=== PATIENT | male | born 1975 | race Hispanic/Latino ===

== ENCOUNTER 2017-06-03 09:06 | Outpatient (CLI) | payer BC | END 2017-06-03 09:07 | disposition home or self-care (01) | LOC: BICMAMMO 09:06 | PROVIDERS: ATTEND Specialist | DX: N63.10 Unspecified lump in the right breast, unspecified quadrant (principal); N64.89 Other specified disorders of breast; Z80.3 Family history of malignant neoplasm of breast | CPT/HCPCS: 77066; G0279 ==

== ENCOUNTER → 2017-06-13 | Day surgery (SDC) | payer BC | LOC: BICULT 14:12 | PROVIDERS: ATTEND Specialist | PROC: 0HBT3ZX Excision of Right Breast, Percutaneous Approach, Diagnostic (ICD-10-PCS; principal; 2017-06-13) | DX: N63.14 Unspecified lump in the right breast, lower inner quadrant (principal) | CPT/HCPCS: 19083; 88305 ==

== ENCOUNTER 2021-10-28 23:17 | Inpatient (IN) | payer BC ==
[2021-10-29 00:12] LABS: Anion Gap 25 mmol/L (10-20); BUN (Urea Nitrogen) 28 mg/dL (8.9-20.6); Calc. Creatinine Clearance 0 mL/min (70-130); Calcium 8.9 mg/dL (7.8-10.44); Carbon Dioxide 11 mmol/L (22-29); Chloride 109 mmol/L (98-107); Glucose 271 mg/dL (70-105); Potassium 4.5 mmol/L (3.5-5.1); Sodium 140 mmol/L (136-145)
[2021-10-29] MEDS ORDERED: Insulin Regular 300 UNITS/3 ML VIAL ONE (00:38)
[2021-10-29] MEDS ORDERED: INSULIN REGULAR IN 0.9 % NACL 100 UNIT/100 ML BAG ONE (00:39)
[2021-10-29] MEDS ORDERED: NS 0.9% w/ 20 MEQ KCL 1,000 ML IV SCH (01:30)
[2021-10-29] MEDS ORDERED: Dextrose 50% Abboject 50 ML SYRINGE SLOW IVP PRN (03:26)
[2021-10-29] MEDS ORDERED: NS 0.9% w/ 20 MEQ KCL 1,000 ML/1,000 ML BAG IV PRN ×2 (03:30)
[2021-10-29] MEDS ORDERED: Dextrose 5% in Water 1,000 ML IV PRN (03:30)
[2021-10-29] MEDS ORDERED: Electrolyte Replacement Protocol FS PRN (03:30)
[2021-10-29] MEDS ORDERED: HUMULIN R 100 UNITS in Sodium Chloride 0.9% 100 ML IVPB SCH ×2 (03:30→10:34)
[2021-10-29] MEDS ORDERED: Sodium Chloride 0.9% 1,000 ML IV PRN ×8 (03:30→10:34)
[2021-10-29] MEDS ORDERED: D5 1/2 NS w/20 mEq KCL 1,000 ML IV PRN (03:30)
[2021-10-29] MEDS ORDERED: Dextrose 5 %-0.45 % NaCl 1,000 ML IV PRN ×2 (03:30→10:34)
[2021-10-29 03:40] VITALS: BMI 23.6
[2021-10-29 05:26] LABS: Anion Gap 18 mmol/L (10-20); BUN (Urea Nitrogen) 20 mg/dL (8.9-20.6); Calc. Creatinine Clearance 82 mL/min (70-130); Calcium 7.9 mg/dL (7.8-10.44); Carbon Dioxide 12 mmol/L (22-29); Chloride 114 mmol/L (98-107); Glucose 112 mg/dL (70-105); Potassium 4.6 mmol/L (3.5-5.1); Sodium 139 mmol/L (136-145)
[2021-10-29] MEDS: Lactated Ringer's 1,000 ML IV SCH ×2 (07:39→09:42)
[2021-10-29] MEDS ORDERED: Promethazine HCl 25 MG in Sodium Chloride 0.9% 50 ML IVPB PRN (09:08)
[2021-10-29] MEDS ORDERED: Electrolyte Replacement Protocol 1 EACH FS SCH (09:15)
[2021-10-29 09:22] LABS: Base Excess -11.9 mEq/L (-2.0 to +3.0); Calcium, Ionized (venous) 1.14 mmol/L (1.16-1.32); Chloride (VBG) 112 mmol/L (98-106); Potassium (VBG) 4.36 mmol/L (3.70-5.30); Sodium 138.7 mmol/L (133-146); pH (venous) 7.27 (7.32-7.43)
[2021-10-29] MEDS: Pantoprazole 40 MG VIAL IVP SCH (09:42)
[2021-10-29 09:59] LABS: Anion Gap 18 mmol/L (10-20); BUN (Urea Nitrogen) 16 mg/dL (8.9-20.6); Calc. Creatinine Clearance 88 mL/min (70-130); Carbon Dioxide 12 mmol/L (22-29); Chloride 114 mmol/L (98-107); Glucose 142 mg/dL (70-105); Potassium 4.4 mmol/L (3.5-5.1); Sodium 140 mmol/L (136-145)
[2021-10-29] MEDS ORDERED: Lactated Ringer's 1,000 ML IV SCH (10:30)
[2021-10-29] MEDS ORDERED: Benzonatate 100 MG CAP PO PRN (10:34)
[2021-10-29] MEDS ORDERED: NS 0.9% w/ 20 MEQ KCL 1,000 ML IV PRN ×2 (10:34)
[2021-10-29] MEDS ORDERED: Acetaminophen 500 MG TAB PO PRN (10:34)
[2021-10-29] MEDS ORDERED: Ondansetron PF 4 MG/2 ML Vial IVP PRN (10:34)
[2021-10-29] MEDS ORDERED: Ondansetron ODT 4 MG TAB PO PRN (10:34)
[2021-10-29] MEDS ORDERED: hydrALAZINE 20 MG/ML VIAL SLOW IVP PRN (10:34)
[2021-10-29] MEDS ORDERED: Cepastat Lozenges 1 LOZ PO PRN (10:34)
[2021-10-29] MEDS ORDERED: Electrolyte Replacement Protocol 1 EACH IVPB ONE (10:34)
[2021-10-29 10:49] LABS: Actual Bicarbonate (HCO3v) 14 mEq/L (22-28)
[2021-10-29] MEDS: D5 1/2 NS w/20 mEq KCL 1,000 ML IV PRN ×4 (11:30→23:15)
[2021-10-29] MEDS ORDERED: Ondansetron PF 4 MG/2 ML Vial IVP SCH (12:00)
[2021-10-29] MEDS: Metoclopramide HCl 10 MG/2 ML VIAL IVP SCH ×2 (13:14→21:32)
[2021-10-29 16:40] LABS: Anion Gap 16 mmol/L (10-20); BUN (Urea Nitrogen) 11 mg/dL (8.9-20.6); Calc. Creatinine Clearance 91 mL/min (70-130); Calcium 8.4 mg/dL (7.8-10.44); Carbon Dioxide 13 mmol/L (22-29); Chloride 112 mmol/L (98-107); Glucose 191 mg/dL (70-105); Potassium 4.3 mmol/L (3.5-5.1); Sodium 137 mmol/L (136-145)
[2021-10-29] MEDS: Enoxaparin Sodium 40 MG/0.4 ML SYRINGE SC SCH (20:21)
[2021-10-29] MEDS ORDERED: Famotidine 20 MG TAB PO SCH (21:00)
[2021-10-29 22:19] LABS: Anion Gap 15 mmol/L (10-20); BUN (Urea Nitrogen) 7 mg/dL (8.9-20.6); Calc. Creatinine Clearance 110 mL/min (70-130); Calcium 8.3 mg/dL (7.8-10.44); Carbon Dioxide 15 mmol/L (22-29); Chloride 109 mmol/L (98-107); Glucose 148 mg/dL (70-105); Sodium 135 mmol/L (136-145)
[2021-10-30] MEDS: D5 1/2 NS w/20 mEq KCL 1,000 ML IV PRN (03:20)
[2021-10-30 03:46] LABS: #Lymphocytes 0.7 thou/uL (1.20-3.40); #Monocytes 0.6 thou/uL (0.11-0.59); #Neutrophils 4.8 thou/uL (1.40-6.50); %Basophils 0.3 % (0.0-1.0); %Eosinophils 0.4 % (0.0-10.0); %Lymphocytes 12.1 % (21.0-51.0); %Monocytes 8.9 % (0.0-10.0); %Neutrophils 78.4 % (42.0-75.0); Hemoglobin 13.9 g/dL (14.0-18.0); Mean Corpuscular HGB CONC 33.2 g/dL (32.0-36.0); Mean Corpuscular Hemoglobin 30.1 pg (27.0-31.0); Mean Corpuscular Volume 90.7 fL (78.0-98.0); Mean Platelet Volume 8.7 fL (7.4-10.4); Platelet Count 176 thou/uL (130-400); RBC Distribution Width 12.3 % (11.5-14.5); Red Blood Cell (RBC) Count 4.62 mill/uL (4.70-6.10); White Blood Cell (WBC) Count 6.2 thou/uL (4.8-10.8)
[2021-10-30 03:49] LABS: Hemoglobin A1c 10.6 % (4.0-6.0)
[2021-10-30] MEDS: Metoclopramide HCl 10 MG/2 ML VIAL IVP SCH (06:26)
[2021-10-30] MEDS: Pantoprazole 40 MG VIAL IVP SCH (08:01)
[2021-10-30] MEDS ORDERED: Azithromycin 200 MG/5 ML Oral Suspension PO SCH (09:00)
[2021-10-30] MEDS ORDERED: Ergocalciferol 1.25 MG(50,000 UNITS) CAP PO SCH (09:00)
[2021-10-30] MEDS ORDERED: Metoclopramide HCl 10 MG/2 ML VIAL IVP PRN (12:06)
[2021-10-30] MEDS: Zinc Sulfate 220 MG CAP PO SCH (12:12)
[2021-10-30] MEDS: Azithromycin 250 MG TAB PO SCH (14:54)
[2021-10-30] MEDS: Enoxaparin Sodium 40 MG/0.4 ML SYRINGE SC SCH (20:28)
[2021-10-30] MEDS: Insulin Glargine 30 UNITS/0.3 ML VIAL SC SCH (20:30)
[2021-10-31] MEDS: Insulin Regular 300 UNITS/3 ML VIAL SC PRN ×4 (05:28→21:38)
[2021-10-31 06:22] LABS: #Lymphocytes 1.4 thou/uL (1.20-3.40); #Monocytes 0.5 thou/uL (0.11-0.59); #Neutrophils 2.6 thou/uL (1.40-6.50); %Eosinophils 0.7 % (0.0-10.0); %Lymphocytes 31.6 % (21.0-51.0); %Monocytes 10.7 % (0.0-10.0); %Neutrophils 57.1 % (42.0-75.0); Hemoglobin 15.9 g/dL (14.0-18.0); Mean Corpuscular HGB CONC 33.1 g/dL (32.0-36.0); Mean Corpuscular Volume 87.6 fL (78.0-98.0); Mean Platelet Volume 8.1 fL (7.4-10.4); Platelet Count 185 thou/uL (130-400); Red Blood Cell (RBC) Count 5.48 mill/uL (4.70-6.10); White Blood Cell (WBC) Count 4.5 thou/uL (4.8-10.8)
[2021-10-31 06:37] LABS: Anion Gap 18 mmol/L (10-20); BUN (Urea Nitrogen) 11 mg/dL (8.9-20.6); Calc. Creatinine Clearance 113 mL/min (70-130); Calcium 9.5 mg/dL (7.8-10.44); Carbon Dioxide 19 mmol/L (22-29); Chloride 103 mmol/L (98-107); Glucose 144 mg/dL (70-105); Potassium 3.7 mmol/L (3.5-5.1); Sodium 136 mmol/L (136-145)
[2021-10-31] MEDS: Pantoprazole 40 MG VIAL IVP SCH (08:31)
[2021-10-31] MEDS: Zinc Sulfate 220 MG CAP PO SCH (08:31)
[2021-10-31] MEDS: Dexamethasone 4 mg/ml Vial SLOW IVP SCH (08:31)
[2021-10-31] MEDS: Azithromycin 250 MG TAB PO SCH (14:00)
[2021-10-31] MEDS: Insulin Glargine 30 UNITS/0.3 ML VIAL SC SCH (21:38)
[2021-10-31] MEDS: Enoxaparin Sodium 40 MG/0.4 ML SYRINGE SC SCH (21:42)
[2021-11-01] MEDS: Insulin Regular 300 UNITS/3 ML VIAL SC PRN (06:13)
[2021-11-01 07:01] LABS: #Lymphocytes 1.4 thou/uL (1.20-3.40); #Monocytes 0.4 thou/uL (0.11-0.59); #Neutrophils 1.8 thou/uL (1.40-6.50); %Basophils 0.5 % (0.0-1.0); %Eosinophils 0.2 % (0.0-10.0); %Lymphocytes 38.2 % (21.0-51.0); %Monocytes 11.3 % (0.0-10.0); %Neutrophils 49.7 % (42.0-75.0); Hemoglobin 15.8 g/dL (14.0-18.0); Mean Corpuscular HGB CONC 33.3 g/dL (32.0-36.0); Mean Corpuscular Hemoglobin 29.2 pg (27.0-31.0); Mean Corpuscular Volume 87.9 fL (78.0-98.0); Mean Platelet Volume 8.2 fL (7.4-10.4); Platelet Count 201 thou/uL (130-400); Red Blood Cell (RBC) Count 5.39 mill/uL (4.70-6.10); White Blood Cell (WBC) Count 3.6 thou/uL (4.8-10.8)
[2021-11-01 07:21] LABS: Anion Gap 16 mmol/L (10-20); BUN (Urea Nitrogen) 16 mg/dL (8.9-20.6); CRP (Inflammatory) 1.74 mg/dL (= or < 0.5); Calc. Creatinine Clearance 110 mL/min (70-130); Calcium 9.8 mg/dL (7.8-10.44); Carbon Dioxide 24 mmol/L (22-29); Chloride 100 mmol/L (98-107); Estimated GFR 112; Glucose 172 mg/dL (70-105); Potassium 3.6 mmol/L (3.5-5.1); Sodium 136 mmol/L (136-145)
[2021-11-01 08:55] VITALS: BP 140/95; TEMP 97.7
[2021-11-01] MEDS: Dexamethasone 4 mg/ml Vial SLOW IVP SCH (09:52)
[2021-11-01] MEDS: Zinc Sulfate 220 MG CAP PO SCH (09:52)
== END 2021-11-01 10:36 | disposition home or self-care (01) | DRG 177 ==
LOC: ERS 23:17 → CCU 10-29 01:30 → T4-B 10-30 21:51
PROVIDERS: ADMIT Internal Medicine; ATTEND Internal Medicine
PROC: 8E0ZXY6 Isolation (ICD-10-PCS; principal; 2021-10-29)
DX: U07.1 COVID-19 (principal); E11.10 Type 2 diabetes mellitus with ketoacidosis without coma; E86.0 Dehydration; E78.5 Hyperlipidemia, unspecified; F42.9 Obsessive-compulsive disorder, unspecified; F41.9 Anxiety disorder, unspecified; E11.43 Type 2 diabetes mellitus with diabetic autonomic (poly)neuropathy; K31.84 Gastroparesis; Z88.8 Allergy status to other drugs, medicaments and biological substances; Z79.899 Other long term (current) drug therapy
CPT/HCPCS: 36415; 36416; 71045; 80048; 82010; 82805; 83036; 85025; 85379; 85652; 86140; 96361; 96365; 96366; 96368; C9113; J1100; J1650; J1815; J2765; J3480; J7120; Q0162

== ENCOUNTER 2021-11-17 12:20 | Outpatient (CLI) | payer BC | END 2021-11-17 12:21 | disposition home or self-care (01) | LOC: BICRAD 12:20 | PROVIDERS: ATTEND Specialist | DX: M48.061 Spinal stenosis, lumbar region without neurogenic claudication (principal); R20.0 Anesthesia of skin | CPT/HCPCS: 72110 ==

== ENCOUNTER 2021-11-30 08:14 | Outpatient (CLI) | payer BC | END 2021-11-30 08:15 | disposition home or self-care (01) | LOC: SCSMRI 08:14 | PROVIDERS: ATTEND Specialist | DX: M48.061 Spinal stenosis, lumbar region without neurogenic claudication (principal); R93.5 Abnormal findings on diagnostic imaging of other abdominal regions, including retroperitoneum | CPT/HCPCS: 72148 ==

== ENCOUNTER 2021-12-06 07:54 | Outpatient (CLI) | payer BC ==
[2021-12-06] MEDS ORDERED: GASTROGRAFIN 30 ML BOT ONE (14:02)
== END 2021-12-06 07:55 | disposition home or self-care (01) ==
LOC: CT 07:54
PROVIDERS: ATTEND Plastic Surgery Surgery of the Hand
DX: K63.89 Other specified diseases of intestine (principal); K59.00 Constipation, unspecified; N20.0 Calculus of kidney; R19.5 Other fecal abnormalities; N28.1 Cyst of kidney, acquired
CPT/HCPCS: 74176; Q9963

== ENCOUNTER 2023-04-15 12:22 | Outpatient (CLI) | payer BC ==
[2023-04-15 14:52] LABS: #Eosinphils 0.1 10x3/uL (0.0-0.5); #Monocytes 0.4 10x3/uL (0.0-1.1); #Neutrophils 5.7 10x3/uL (1.5-8.4); %Basophils 0.2 % (0.0-2.0); %Eosinophils 1.2 % (0.0-6.0); %Lymphocytes 22.7 % (18.0-47.0); %Neutrophils 70.7 % (40.0-75.0); Hematocrit 47.3 % (38.8-50.0); Hemoglobin 15.8 g/dL (13.5-17.5); Mean Corpuscular HGB CONC 33.4 g/dL (32.0-36.0); Mean Corpuscular Hemoglobin 28.9 pg (27.0-33.0); Mean Corpuscular Volume 86.6 fl (81.2-95.1); Mean Platelet Volume 10.4 fl (7.4-10.4); Platelet Count 241 10x3/uL (150-450); RBC Distribution Width 13.5 % (11.5-14.5); Red Blood Cell (RBC) Count 5.46 10x6/uL (4.32-5.72); White Blood Cell (WBC) Count 8.1 10x3/uL (3.5-10.5)
[2023-04-15 15:08] LABS: Anion Gap 15 mmol/L (10-20); BUN (Urea Nitrogen) 12 mg/dL (8.9-20.6); Calc. Creatinine Clearance 0 mL/min (70-130); Calcium 9.9 mg/dL (7.8-10.44); Carbon Dioxide 24 mmol/L (22-29); Chloride 104 mmol/L (98-107); Estimated GFR 108; Glucose 128 mg/dL (70-105); Potassium 4.2 mmol/L (3.5-5.1); Sodium 139 mmol/L (136-145)
== END 2023-04-15 12:23 | disposition home or self-care (01) ==
LOC: LABBT 12:22
PROVIDERS: ATTEND Surgery
DX: Z01.812 Encounter for preprocedural laboratory examination (principal); D17.21 Benign lipomatous neoplasm of skin and subcutaneous tissue of right arm
CPT/HCPCS: 80048; 85025

== ENCOUNTER 2023-04-25 10:12 | Day surgery (SDC) | payer BC ==
[2023-04-15 13:18] VITALS: BMI 25.7
[2023-04-25] MEDS ORDERED: fentaNYL PF 100 MCG/2 ML SYRINGE ONE (12:23)
[2023-04-25] MEDS ORDERED: PROPOFOL 20 ML ONE (12:24)
[2023-04-25] MEDS ORDERED: Lidocaine 1% PF 5 ML VIAL ONE (12:40)
[2023-04-25] MEDS ORDERED: Lidocaine 2% PF 5 ML VIAL ONE (12:52)
[2023-04-25] MEDS ORDERED: Bupivacaine 0.25% HCL 30 ML VIAL ONE (12:52)
[2023-04-25] MEDS ORDERED: EPINEPHrine 1 MG/ML VIAL ONE (12:52)
[2023-04-25] MEDS ORDERED: Midazolam HCl 2 mg/2 ml Vial ONE (12:54)
[2023-04-25] MEDS ORDERED: CEFAZOLIN 2 GM VIAL ONE (13:00)
[2023-04-25] MEDS ORDERED: Sodium Chloride 0.9% 100 ML ONE (13:01)
[2023-04-25] MEDS ORDERED: Ondansetron PF 4 MG/2 ML Vial ONE ×2 (13:25→14:34)
[2023-04-25] MEDS ORDERED: Ketorolac Tromethamine 30 MG/ML VIAL ONE (13:25)
[2023-04-25] MEDS ORDERED: Dexamethasone 4 mg/ml Vial ONE (13:25)
[2023-04-25] MEDS ORDERED: PACU-Morphine 4MG/ML VIAL SLOW IVP PRN (13:45)
[2023-04-25] MEDS ORDERED: Ondansetron HCl/PF 4 MG/2 ML Vial IVP PRN (13:45)
[2023-04-25] MEDS ORDERED: Morphine Sulfate 2 MG/ML SYRINGE SLOW IVP PRN (13:45)
[2023-04-25] MEDS ORDERED: Promethazine HCl 25 MG/ML VIAL IM PRN (13:45)
[2023-04-25] MEDS ORDERED: HYDROmorphone 2 MG/ML VIAL SLOW IVP PRN (13:45)
[2023-04-25] MEDS ORDERED: Ondansetron ODT 4 MG TAB ONE (15:02)
[2023-04-25] MEDS ORDERED: HYDROcodone/Acetaminophen 5/325 mg Tablet ONE (15:37)
== END 2023-04-25 16:27 | disposition home or self-care (01) ==
LOC: SDC 10:12
PROVIDERS: ATTEND Surgery
PROC: 0HBBXZX Excision of Right Upper Arm Skin, External Approach, Diagnostic (ICD-10-PCS; principal; 2023-04-25)
DX: D17.1 Benign lipomatous neoplasm of skin and subcutaneous tissue of trunk (principal); E11.9 Type 2 diabetes mellitus without complications; F41.9 Anxiety disorder, unspecified; Z88.8 Allergy status to other drugs, medicaments and biological substances; Z79.84 Long term (current) use of oral hypoglycemic drugs; Z79.899 Other long term (current) drug therapy
CPT/HCPCS: 88304; J0171; J1100; J1885; J2001; J2250; J2405; J2704; J3490; Q0162; S0020